=== PATIENT | female | born 1960 | race African-American/Black ===

== ENCOUNTER 2024-09-02 02:25 | Emergency (ER) | payer SELFPAY ==
[2024-09-02 03:01] LABS: Absolute Basophils 0.1 K/uL (0-0.5); Absolute Lymphocytes (CBC) 2.9 K/uL (0.7-4.9); Absolute Monocytes 0.7 K/uL (0.1-1.3); Absolute Neutrophil 6.2 K/uL (1.8-8.0); Basophils % 0.7 % (0-1.3); Eosinophils % 0.3 % (0-4.4); Hemoglobin 12.5 g/dL (12.0-15.0); Lymphocytes % 29.5 % (15.3-44.8); MCH 28.4 pg (27.0-35.0); MCHC 33.9 g/dL (32.0-36.0); MCV 83.9 fL (80-100); MPV 9.1 fL (7.6-11.3); Monocytes % 7.3 % (3.3-12.3); Neutrophils % 62.2 % (41.7-73.7); Nucleated Red Blood Cells % 0.2 % (0-0); Platelets 249 thou/uL (152-406); RBC Red Blood Cell Count 4.41 M/uL (3.86-4.86); Red Cell Distribution Width 13.8 % (12.1-15.2)
[2024-09-02 03:04] LABS: Specific Gravity 1.013 (1.005-1.030); Sqamous Epithelial <5 /HPF (None Seen); Urine Bacteria None Seen /HPF (<20); Urine Bilirubin NEGATIVE (Negative); Urine Blood 2+ (Negative); Urine Clarity Clear (Clear); Urine Color Colorless (Yellow); Urine Culture Reflex Order NOT NEEDED; Urine Glucose NEGATIVE (Negative); Urine Ketones NEGATIVE (Negative); Urine Microscopic Reflex YN ORDER UMIC; Urine Mucus Slight /HPF (None Seen); Urine Nitrite NEGATIVE (Negative); Urine Protein NEGATIVE (Negative); Urine Urobilinogen Normal (Normal); Urine WBC <5 /HPF (<5); Urine Yeast (Budding) Trace /HPF (None Seen); Urine pH 6.5 (5.0-7.0)
[2024-09-02 03:17] LABS: Albumin 3.9 g/dL (3.4-5.0); Albumin/Globulin Ratio 1.1 (1.1-1.8); Bilirubin Total 0.8 mg/dL (0.2-1.0); Globulin 3.6 g/dL (2.3-3.5); Protein, Total 7.5 g/dL (6.4-8.2)
--- NOTE | 2024-09-02 05:04 | RAD REPORT ---
EXAM DESCRIPTION: Abdomen Pelvis W Contrast CLINICAL HISTORY: right flank pain COMPARISON: None Available. TECHNIQUE: CT of the abdomen and pelvis performed following the administration of IV contrast. No ora l contrast. This exam was performed according to our departmental dose-optimization program, which includes automated exposure control, adjustment of the mA and/or kV according to patient size and/or use of iterative reconstruction technique. FINDINGS: Lung Bases: The visualized lung bases are clear. Abdomen: Liver: The liver has normal contour and density. No suspicious mass. Gallbladder: Surgically absent. No significant biliary dilatation. Spleen, Pancreas, and Adrenal Glands: The spleen, pancreas, and adrenal glands are unremarkable. Kidneys: There is some asymmetric right perinephric fat stranding. There may be mild proximal right periureteral fat stranding. Minimal right hydronephrosis. No distal obstructing calculus is definitively identified. There are numerous pelvic phleboliths. No left hydronephrosis. Vasculature: The aorta and IVC have normal caliber and position. The portal vein is patent. The pro ximal visceral and renal arteries are patent. Stomach: The stomach and duodenum have normal course. Pelvis: Bowel: No dilated loops of large or small bowel. Mild colon diverticulosis. Appendix: Normal appendix. Bladder: Mild diffuse bladder wall thickening. Reproductive: Small calcifications in the anterior uterus may be due to small fibroids. Other: No free intraperitoneal air. No free fluid or lymphadenopathy. Bones: No destructive bone lesions identified. IMPRESSION: 1. Mild right perinephric and proximal periureteral fat stranding with minimal right hydronephrosis . No distal obstructing calculus is identified. Findings could be due to recently passed calculus or infection. There is also mild diffuse bladder wall thickening which could be due to cystitis. Jose elate with urinalysis. 2. Mild colon diverticulosis. Electronically signed by: Yissel Fortune MD 09/02/2024 04:58 AM CDT RP Due to temporary technical issues with the PACS/[employer] reporting system, reports are being deshaun d by the in-house radiologist without review as a courtesy to ensure prompt reporting the interpreting radiologist is fully responsible for the content of the report. Transcribed Date/Time: 09/02/2024 5:04 AM
[2024-09-02] MEDS ORDERED: CEPHALEXIN 250 MG CAP ONE (05:20)
--- NOTE | 2024-09-02 05:23 | EDPHYS ---
Physician Documentation [facility] Name: Maine Culp Age: 63 yrs Sex: Female : 1960 Arrival Date: 09/02/2024 Time: 02:25 Bed 8 Private MD: ED Physician Tin Fenton HPI: 09/02 02:51 This 63 yrs old Black Female presents to ER via Ambulatory with complaints of Urinary sp4 Incontinence, Abdominal Pain. 04:41 63-year-old female with no significant past medical history presents with complaint sp4 urinating discomfort, feeling of incomplete bladder emptying also right flank and the right lower quadrant pain starting 3 hours prior to arrival. Pain described as pressure. On arrival to the emergency room the pain has resolved spontaneously.. Historical: - Allergies: 02:48 No Known Allergies; jb4 - PMHx: 02:48 None; jb4 - PSHx: 02:48 Cholecystectomy; jb4 - Immunization history:: Adult Immunizations up to date. - Infectious Disease History:: Denies. - Social history:: Smoking status: Patient denies any tobacco usage or history of. - Family history:: not pertinent. ROS: 04:41 Constitutional: Negative for fever, chills, and weight loss, positive right flank right sp4 lower abdominal pain, positive dysuria 04:41 All other systems are negative, Exam: 04:41 Constitutional: This is a well developed, well nourished patient who is awake, alert, sp4 and in no acute distress. Head/Face: Normocephalic, atraumatic. Eyes: Pupils equal round and reactive to light, extra-ocular motions intact. Lids and lashes normal. Conjunctiva and sclera are not injected. Cornea within normal limits. Periorbital areas with no swelling, redness, or edema. ENT: Nares patent. No nasal discharge, no septal abnormalities noted. Tympanic membranes are normal and external auditory canals are clear. Oropharynx with no redness, swelling, or masses, exudates, or evidence of obstruction, uvula midline. Mucous membranes moist. Neck: Trachea midline, no thyromegaly or masses palpated, and no cervical lymphadenopathy. Supple, full range of motion without nuchal rigidity, or vertebral point tenderness. Chest/axilla: Normal chest wall appearance and motion. Nontender with no deformity. No lesions are appreciated. Cardiovascular: Regular rate and rhythm with a normal S1 and S2. No gallops, murmurs, or rubs. Normal PMI, no JVD. No pulse deficits. Respiratory: Lungs have equal breath sounds bilaterally, clear to auscultation and percussion. No rales, rhonchi or wheezes noted. No increased work of breathing, no retractions or nasal flaring. Abdomen/GI: Soft, with normal bowel sounds. No distension or tympany. No guarding or rebound. No evidence of tenderness throughout. Back: No spinal tenderness. No costovertebral tenderness. Skin: Warm, dry with normal turgor. Normal color with no rashes, no lesions, and no evidence of cellulitis. MS/ Extremity: Pulses equal, no cyanosis. Neurovascular intact. Full, normal range of motion. Neuro: Awake and alert, GCS 15, oriented to person, place, time, and situation. Cranial nerves II-XII grossly intact. Motor strength 5/5 in all extremities. Sensory grossly intact. Psych: Awake, alert, with orientation to person, place and time. Behavior, mood, and affect are within normal limits Vital Signs: 02:45 BP 156 / 98; Pulse 80; Resp 16; Temp 98.3(O); Pulse Ox 100% on R/A; Weight 108.41 kg jb4 (M); Height 5 ft. 6 in. ; 04:38 BP 119 / 99; Pulse 84; Resp 19; Temp 98.3; Pulse Ox 99% ; Pain 2/10; bm8 05:24 BP 141 / 94; Pulse 86; Resp 8; Pulse Ox 99% ; km10 05:35 BP 141 / 94; Pulse 80; Resp 17; Temp 98.3; Pulse Ox 99% ; Pain 0/10; bm8 02:45 Body Mass Index 38.58 (108.41 kg, 167.64 cm) jb4 04:38 Pain Scale: Adult bm8 05:35 Pain Scale: Adult bm8 [place] Coma Score: 04:38 Eye Response: spontaneous(4). Motor Response: obeys commands(6). Verbal Response: bm8 oriented(5). Total: 15. 04:41 Eye Response: spontaneous(4). Motor Response: obeys commands(6). Verbal Response: sp4 oriented(5). Total: 15. 05:35 Eye Response: spontaneous(4). Motor Response: obeys commands(6). Verbal Response: bm8 oriented(5). Total: 15. MDM: 03:04 Medical Screening Exam initiated sp4 04:42 Differential diagnosis: cervicitis, dysmenorrhea, endometriosis, menometrorrhagia, sp4 Neoplasm ovarian cyst. Data reviewed: vital signs, nurses notes, lab test result(s), radiologic studies, CT scan. 05:11 Consideration of Admission/Observation Escalation of care including sp4 admission/observation considered. ED course: EXAM DESCRIPTION: Abdomen Pelvis W Contrast CLINICAL HISTORY: right flank pain COMPARISON: None Available. TECHNIQUE: CT of the abdomen and pelvis performed following the administration of IV contrast. No oral contrast. This exam was performed according to our departmental dose-optimization program, which includes automated exposure control, adjustment of the mA and/or kV according to patient size and/or use of iterative reconstruction technique. FINDINGS: Lung Bases: The visualized lung bases are clear. Abdomen: Liver: The liver has normal contour and density. No suspicious mass. Gallbladder: Surgically absent. No significant biliary dilatation. Spleen, Pancreas, and Adrenal Glands: The spleen, pancreas, and adrenal glands are unremarkable. Kidneys: There is some asymmetric right perinephric fat stranding. There may be mild proximal right periureteral fat stranding. Minimal right hydronephrosis. No distal obstructing calculus is definitively identified. There are numerous pelvic phleboliths. No left hydronephrosis. Vasculature: The aorta and IVC have normal caliber and position. The portal vein is patent. The proximal visceral and renal arteries are patent. Stomach: The stomach and duodenum have normal course. Pelvis: Bowel: No dilated loops of large or small bowel. Mild colon diverticulosis. Appendix: Normal appendix. Bladder: Mild diffuse bladder wall thickening. Reproductive: Small calcifications in the anterior uterus may be due to small fibroids. Other: No free intraperitoneal air. No free fluid or lymphadenopathy. Bones: No destructive bone lesions identified. IMPRESSION: 1. Mild right perinephric and proximal periureteral fat stranding with minimal right hydronephrosis. No distal obstructing calculus is identified. Findings could be due to recently passed calculus or infection. There is also mild diffuse bladder wall thickening which could be due to cystitis. Correlate with urinalysis. 2. Mild colon diverticulosis. Electronically signed by: Yissel Fortune MD 09/02/2024 04:58 AM. 05:20 ED course: Patient stable for discharge home with follow-up with primary care physician sp4 will refer patient to Dr. Marvin Sky ED course: Will recommend blood sugar check in 2 to 4 weeks. At the primary care clinic.. 09/02 02:45 Order name: CBC with Diff; Complete Time: 04:39 ha1 09/02 02:45 Order name: CMP; Complete Time: 04:39 ha1 09/02 02:45 Order name: Lipase; Complete Time: 04:39 ha1 09/02 02:45 Order name: UA Rfx Britton Cult if indicated; Complete Time: 04:39 ha1 09/02 03:10 Order name: CT Abd/Pelvis - IV Contrast Only; Complete Time: 05:12 sp4 09/02 02:45 Order name: IV Saline Lock; Complete Time: 02:54 ha1 09/02 02:45 Order name: Labs collected and sent; Complete Time: 02:54 ha1 Administered Medications: 05:20 Drug: Cephalexin PO 500 mg PO once Route: PO; bm8 05:35 Follow up: Response: No adverse reaction bm8 Disposition: 09/03 00:52 Chart complete. sp4 Disposition Summary: 09/02/24 05:23 Discharge Ordered Notes: WE recommend follow up with [facility] Location: Home sp4 Problem: new sp4 Symptoms: have improved sp4 Condition: Stable sp4 Diagnosis - Right hydronephrosis secondary to recently passed ureteral calculus, Acute UTI, sp4 Elevated blood sugar Followup: sp4 - With: Jayson Wong DO - When: 10 - 14 days - Reason: Recheck today's complaints Discharge Instructions: - Discharge Summary Sheet sp4 - Kidney Stones, [id number] sp4 - Urinary Tract Infection, Adult, [id number] sp4 Forms: - Patient Portal Instructions sp4 Prescriptions: - Cephalexin 500 mg Oral Capsule - take 1 capsule ORAL route every 12 hours for 10 days; 20 capsule; Refills: 0, sp4 Product Selection Permitted Signatures: Dispatcher [employer] Daniel Magallon RN RN 4 Valerie Lamas RN RN ha1 Tin Fenton MD MD sp4 Duane Mi, RN RN bm8
--- NOTE | 2024-09-02 05:23 | ER ---
Nurse's Notes [facility] Name: Maine Culp Age: 63 yrs Sex: Female : 1960 Arrival Date: 09/02/2024 Time: 02:25 Bed 8 Private MD: Diagnosis: Right hydronephrosis secondary to recently passed ureteral calculus, Acute UTI, Elevated blood sugar Presentation: 09/02 02:45 Chief complaint: Patient states: I started having right lower abdominal pain and jb4 urinary urgency 3 hours ago. Coronavirus screen: At this time, the client does not indicate any symptoms associated with coronavirus-19. Ebola Screen: No symptoms or risks identified at this time. Initial Sepsis Screen: Does the patient meet any 2 criteria? No. Patient's initial sepsis screen is negative. Does the patient have a suspected source of infection? No. Patient's initial sepsis screen is negative. Risk Assessment: Do you want to hurt yourself or someone else? Patient reports no desire to harm self or others. Onset of symptoms was September 02, 2024. Transition of care: patient was not received from another setting of care. 02:45 Method Of Arrival: Ambulatory jb4 02:45 Acuity: RICHARD 3 jb4 Historical: - Allergies: 02:48 No Known Allergies; jb4 - PMHx: 02:48 None; jb4 - PSHx: 02:48 Cholecystectomy; jb4 - Immunization history:: Adult Immunizations up to date. - Infectious Disease History:: Denies. - Social history:: Smoking status: Patient denies any tobacco usage or history of. - Family history:: not pertinent. Screenin:57 [facility] ED Fall Risk Assessment (Adult) History of falling in the last 3 months, ha1 including since admission No falls in past 3 months (0 pts) Confusion or Disorientation No (0 pts) Intoxicated or Sedated No (0 pts) Impaired Gait No (0 pts) Mobility Assist Device Used No (0 pt) Altered Elimination No (0 pt) Score/Fall Risk Level 0 - 2 = Low Risk Oriented to surroundings, Maintained a safe environment, Educated pt \T\ family on fall prevention, incl call for assistance when getting out of bed, Hourly rounding (assess needs \T\ fall precautionary measures) done. Abuse screen: Denies threats or abuse. Denies injuries from another. Nutritional screening: No deficits noted. Tuberculosis screening: No symptoms or risk factors identified. Assessment: 02:30 General: Appears uncomfortable, Behavior is calm, cooperative. Pain: Complains of pain ha1 in right lower quadrant Pain currently is 6 out of 10 on a pain scale. Quality of pain is described as aching, pressure. Neuro: Level of Consciousness is awake, alert, obeys commands, Oriented to person, place, time, situation. Cardiovascular: Capillary refill < 3 seconds Patient's skin is warm and dry. Respiratory: Airway is patent Respiratory effort is even, unlabored, Respiratory pattern is regular, symmetrical. GI: Abdomen is round non-distended, obese, Bowel sounds present X 4 quads. Abd is soft and non tender X 4 quads. Reports lower abdominal pain. : Urine is cloudy, Reports urinary frequency. Derm: No signs and/or symptoms reported regarding the dermatologic system. Skin is normal. Musculoskeletal: Circulation, motion, and sensation intact. Range of motion: intact in all extremities. 04:38 Reassessment: Patient appears in no apparent distress at this time. Patient and/or bm8 family updated on plan of care and expected duration. Pain level reassessed. Patient is alert, oriented x 3, equal unlabored respirations, skin warm/dry/pink. Patient states feeling better. Patient states symptoms have improved. 05:35 Reassessment: Patient appears in no apparent distress at this time. Patient and/or bm8 family updated on plan of care and expected duration. Pain level reassessed. Patient is alert, oriented x 3, equal unlabored respirations, skin warm/dry/pink. Patient denies pain at this time. Patient states feeling better. Patient states symptoms have improved. Vital Signs: 02:45 BP 156 / 98; Pulse 80; Resp 16; Temp 98.3(O); Pulse Ox 100% on R/A; Weight 108.41 kg jb4 (M); Height 5 ft. 6 in. ; 04:38 BP 119 / 99; Pulse 84; Resp 19; Temp 98.3; Pulse Ox 99% ; Pain 2/10; bm8 05:24 BP 141 / 94; Pulse 86; Resp 8; Pulse Ox 99% ; km10 05:35 BP 141 / 94; Pulse 80; Resp 17; Temp 98.3; Pulse Ox 99% ; Pain 0/10; bm8 02:45 Body Mass Index 38.58 (108.41 kg, 167.64 cm) jb4 04:38 Pain Scale: Adult bm8 05:35 Pain Scale: Adult bm8 Britney Coma Score: 04:38 Eye Response: spontaneous(4). Motor Response: obeys commands(6). Verbal Response: bm8 oriented(5). Total: 15. 04:41 Eye Response: spontaneous(4). Motor Response: obeys commands(6). Verbal Response: sp4 oriented(5). Total: 15. 05:35 Eye Response: spontaneous(4). Motor Response: obeys commands(6). Verbal Response: bm8 oriented(5). Total: 15. ED Course: 02:27 Patient arrived in ED. jj6 02:29 Patient has correct armband on for positive identification. Bed in low position. Call ha1 light in reach. Side rails up X 1. Adult w/ patient. 02:48 Triage completed. jb4 02:48 Arm band placed on right wrist. jb4 02:51 Tin Fenton MD is Attending Physician. sp4 02:54 Valerie Lamas RN is Primary Nurse. ha1 02:54 CBC with Diff Sent. ha1 02:54 CMP Sent. ha1 02:54 Lipase Sent. ha1 02:54 UA Rfx Britton Cult if indicated Sent. ha1 02:54 Inserted saline lock: 20 gauge in right antecubital area, using aseptic technique. bm8 Blood collected. Flushed with 10 mL NS. 03:49 CT Abd/Pelvis - IV Contrast Only In Process Unspecified. EDMS 05:21 Jayson Wong DO is Referral Physician. sp4 05:35 Provided Education on: post er care. bm8 05:35 No provider procedures requiring assistance completed. IV discontinued, intact, bm8 bleeding controlled, No redness/swelling at site. Pressure dressing applied. Administered Medications: 05:20 Drug: Cephalexin PO 500 mg PO once Route: PO; bm8 05:35 Follow up: Response: No adverse reaction bm8 Medication: 02:57 VIS not applicable for this client. ha1 Outcome: 02:54 Discharged to home ambulatory, bm8 02:54 Condition: stable 02:54 Discharge instructions given to patient, family, Instructed on discharge instructions, follow up and referral plans. no drinking with medication, no driving heavy equipment, medication usage, safety practices, Demonstrated understanding of instructions, follow-up care, medications, Prescriptions given X 1, 05:23 Discharge ordered by MD. cannon 05:36 Patient left the ED. bm8 Signatures: Dispatcher [employer] EDMS Daniel Abraham, RN RN jb4 Angeles Mojica jj6 Valerie Lamas RN RN ha1 Tin Fenton MD MD sp4 Duane Mi RN RN bm8 Radha Rebolledo RN RN km10
[2024-09-02 05:40] VITALS: TEMP 98.3
[2024-09-02 05:42] VITALS: O2SAT 99
[2024-09-02 05:44] VITALS: BP 141/94
== END 2024-09-02 05:36 | disposition home or self-care (01) ==
LOC: ER 02:25
DX: N39.0 Urinary tract infection, site not specified (principal); N13.30 Unspecified hydronephrosis; R73.9 Hyperglycemia, unspecified
CPT/HCPCS: 36415; 74177; 80053; 81001; 83690; 85025; 99284; Q9967